=== PATIENT | female | born 1985 | race Caucasian/White ===

== ENCOUNTER 2017-09-07 05:10 | Emergency (ER) | payer OTHER ==
--- NOTE | 2017-09-07 05:14 | ER Report ---
History and Physical Time Seen By MD: 05:13 HPI/ROS CHIEF COMPLAINT: Urinary tract infection HISTORY OF PRESENT ILLNESS: 31-year-old [place]. She began having dysuria several days ago. She began drinking cranberry juice and increased her water intake. She had intermittent symptoms primarily with voiding urine. Now she has constant symptoms with burning in her genital area with radiation of pain to her back. She's had some nausea but no fever, chills or headache. Patient's last menstrual period was 10 days ago. She notes she still having some spotting Allergies: Coded Allergies: latex (Verified Allergy, Unknown, 09/07/17) Home Meds Active Scripts Cephalexin Monohydrate (CEPHALEXIN) 500 Mg Cap, 500 MG PO TID for infection, # 20 CAP TAKE 1 CAPSULE BY MOUTH tid Prov:ANTONIO CENTENO DO 09/07/17 Reported Medications Albuterol Sulfate (PROVENTIL HFA) 6.7 Gm Inh, 1-2 PUFF INH 3-4XD, INH 09/07/17 Naproxen Sodium (NAPROXEN SODIUM) 550 Mg Tablet, 550 MG PO TID, TAB 09/07/17 Ketorolac Tromethamine (KETOROLAC TROMETHAMINE) 10 Mg Tab, 10 MG PO Q6H, TAB 09/07/17 Reviewed Nurses Notes: Yes Old Medical Records Reviewed: Yes Constitutional Vital Sign - Last 24 Hours 09/07/17 05:16 Temp 98.3 Pulse 99 Resp 17 B/P (MAP) 111/90 Pulse Ox 96 O2 Delivery Room Air Physical Exam Vital signs stable, afebrile, pulse ox normal General appearance: Mild distress Respiratory: Chest is non tender, lungs are clear to auscultation. Cardiac: Regular rate and rhythm Abdomen: Bowel sounds are intact, the abdomen is soft. There is CVA tenderness noted bilaterally DIFFERENTIAL DIAGNOSIS: After history and physical exam differential diagnosis was considered for [ ] Medical Decision Making Data Points Laboratory Hematology Test 09/07/17 05:17 Urine Color Wesley Urine Clarity Slightly-cloudy Urine pH Color interference Urine Specific [place] Color interference Urine Protein Color interference Urine Glucose (UA) Color interference Urine Ketones Color interference Urine Blood Color interference Urine Nitrite Color interference Urine Bilirubin Color interference Urine Urobilinogen Color interference Urine Leukocyte Esterase Color interference Urine RBC 1 /HPF (0-2/HPF) Urine WBC 343 /HPF (0-5/HPF) Urine WBC Clumps Few /HPF Urine Squamous Epithelial Cells Moderate /LPF (</=FEW) Urine Transitional Epithelial Cells Many /LPF (NONE-FEW) Urine Bacteria Few /HPF (NONE-FEW) Urine Mucus None /HPF (NONE-FEW) Urine HCG, Qualitative Negative (NEGATIVE) Chemistry Test 09/07/17 05:17 Urine Color Wesley Urine Clarity Slightly-cloudy Urine pH Color interference Urine Specific [place] Color interference Urine Protein Color interference Urine Glucose (UA) Color interference Urine Ketones Color interference Urine Blood Color interference Urine Nitrite Color interference Urine Bilirubin Color interference Urine Urobilinogen Color interference Urine Leukocyte Esterase Color interference Urine RBC 1 /HPF (0-2/HPF) Urine WBC 343 /HPF (0-5/HPF) Urine WBC Clumps Few /HPF Urine Squamous Epithelial Cells Moderate /LPF (</=FEW) Urine Transitional Epithelial Cells Many /LPF (NONE-FEW) Urine Bacteria Few /HPF (NONE-FEW) Urine Mucus None /HPF (NONE-FEW) Urine HCG, Qualitative Negative (NEGATIVE) Urinalysis Test 09/07/17 05:17 Urine Color Wesley Urine Clarity Slightly-cloudy Urine pH Color interference Urine Specific [place] Color interference Urine Protein Color interference Urine Glucose (UA) Color interference Urine Ketones Color interference Urine Blood Color interference Urine Nitrite Color interference Urine Bilirubin Color interference Urine Urobilinogen Color interference Urine Leukocyte Esterase Color interference Urine RBC 1 /HPF (0-2/HPF) Urine WBC 343 /HPF (0-5/HPF) Urine WBC Clumps Few /HPF Urine Squamous Epithelial Cells Moderate /LPF (</=FEW) Urine Transitional Epithelial Cells Many /LPF (NONE-FEW) Urine Bacteria Few /HPF (NONE-FEW) Urine Mucus None /HPF (NONE-FEW) Urine HCG, Qualitative Negative (NEGATIVE) ED Course/Re-evaluation ED Course Patient was admitted to an examination room. H&P was done. The differential diagnoses was considered. On clinical examination. Patient has symptoms consistent with urinary tract infection. Her urinalysis is grossly infected. A urinary cultures ordered. A urinary test is negative. Patient be treated with Keflex 500 mg 3 times a day. She is advised to continue Pyridium. She is given tramadol take home pack for temporary pain relief. She is advised to follow-up with her primary care physician back home in [place]. Decision to Disposition Date: Sep 07, 2017 Decision to Disposition Time: 05:41 Depart Departure Latest Vital Signs Vital Signs Date Time Temp Pulse Resp B/P (MAP) Pulse Ox O2 Delivery O2 Flow Rate FiO2 09/07/17 05:16 98.3 99 17 111/90 96 Room Air Impression: Primary Impression: Urinary tract infection Condition: Improved Disposition: HOME OR SELF-CARE New Scripts Cephalexin Monohydrate (CEPHALEXIN) 500 Mg Cap 500 MG PO TID for infection, #20 CAP TAKE 1 CAPSULE BY MOUTH tid Prov: ANTONIO CENTENO DO 09/07/17 Patient Instructions: Urinary Tract Infection in Women (ED) Additional Instructions: Alternate ibuprofen and Tylenol for pain relief as needed Continue to take Azo-Standard or Uristat for symptomatically relief Follow-up with your primary care upon returning home for recheck Problem Qualifiers Primary Impression: Urinary tract infection Urinary tract infection type: acute cystitis Hematuria presence: without hematuria Qualified Codes: N30.00 - Acute cystitis without hematuria ANTONIO CENTENO DO Sep 07, 2017 05:14
[2017-09-07 05:16] VITALS: BP 111/90
[2017-09-07] MEDS ORDERED: KET10 PO (05:25)
[2017-09-07] MEDS ORDERED: ALB6.7R INH (05:25)
[2017-09-07] MEDS ORDERED: NAPR550T20 PO (05:25)
[2017-09-07] MEDS ORDERED: CEPHALEXIN MONO 500 MG CAP PO ONE (05:40)
[2017-09-07] MEDS ORDERED: traMADol 50 MG TAB TH 2 TAB/BOTTLE PO ONE (05:40)
[2017-09-07] MEDS ORDERED: CEPH500C24 PO (05:45)
== END 2017-09-07 06:04 | disposition home or self-care (01) ==
LOC: ER 05:18 → EDBD 05:18 → ER 06:04
DX: N30.00 Acute cystitis without hematuria (principal)
CPT/HCPCS: 81001; 81025; 87088; 99283; C9399; 87077; 87186